=== PATIENT | male | born 1995 | race Caucasian/White ===

== ENCOUNTER 2017-01-24 13:58 | Emergency (ER) | payer OTHER ==
[~2017-01-24] VITALS: Ht 177.8 cm; Wt 81.5 kg
[2017-01-24] MEDS ORDERED: MOTRIN800 MG PO (17:09)
[2017-01-24] MEDS ORDERED: VALIUM5 MG PO (17:09)
[2017-01-24 17:38] VITALS: BP 118/55
== END 2017-01-24 17:38 | disposition home or self-care (01) ==
LOC: EME 13:58
DX: S39.012A Strain of muscle, fascia and tendon of lower back, initial encounter (principal); X50.0XXA Overexertion from strenuous movement or load, initial encounter; Y93.89 Activity, other specified; Y99.0 Civilian activity done for income or pay; Y92.59 Other trade areas as the place of occurrence of the external cause
CPT/HCPCS: 99281; 99283